=== PATIENT | male | born 1945 | race Caucasian/White ===

== ENCOUNTER → 2016-05-20 | Outpatient (CLI) | payer OTHER ==
[~2016-05-20] MED LIST: REGADENOSON 0.4 MG/5 ML DISP.SYRIN. IV ONE
== END | disposition home or self-care (01) ==
LOC: PCVCIMAG 07:42
PROVIDERS: ATTEND Internal Medicine Cardiovascular Disease
DX: I10 Essential (primary) hypertension (principal); E11.9 Type 2 diabetes mellitus without complications; E78.00 Pure hypercholesterolemia, unspecified; I25.10 Atherosclerotic heart disease of native coronary artery without angina pectoris; J44.9 Chronic obstructive pulmonary disease, unspecified
CPT/HCPCS: 78452; 93017; 93306; A9500; J2785

== ENCOUNTER → 2018-02-10 | Outpatient (CLI) | payer OTHER ==
--- NOTE | 2018-02-10 15:00 | PCVCIMAG ---
EXAM: BILATERAL RENAL ULTRASOUND AND BILATERAL RENAL DUPLEX INDICATION: Hypertension FINDINGS: Right kidney: Length measures 10.2 cm. No hydronephrosis or extensive renal scarring. 1.5 cm benign cyst lower pole. Right renal duplex: Adequate technical quality. No sonographic evidence of renal artery stenosis. The aortic to renal artery ratio is 1.2. The renal vein is patent. Left kidney: Length measures 10.9 cm. No hydronephrosis or extensive renal scarring. 1.8 cm benign cyst upper pole. Left renal duplex: Adequate technical quality. No sonographic evidence of renal artery stenosis. The aortic to renal artery ratio is 1.1. The renal vein is patent. Bladder: No obvious abnormalities. IMPRESSION: No significant renal artery stenosis. No hydronephrosis bilaterally. LOC:[id number]
== END | disposition home or self-care (01) ==
LOC: PCVCIMAG 13:00
PROVIDERS: ATTEND Internal Medicine Cardiovascular Disease
DX: I10 Essential (primary) hypertension (principal)
CPT/HCPCS: 76770; 93325; 93975

== ENCOUNTER → 2018-03-03 | Outpatient (CLI) | payer OTHER ==
--- NOTE | 2018-03-06 11:47 | PCVCIMAG ---
APPROVED REPORT Study performed: 03/03/2018 07:54:43 EXAM: Comprehensive 2D, Doppler, and color-flow Echocardiogram Patient Location: Echo lab Status: routine BSA: 2.05 HR: 65 bpmBP: 140/80 mmHg Rhythm: NSR Other Information Study Quality: Good Risk Factors: Cardiac Risk Factors: HTN, Hyperlipidemia, Hyperlipidemia, Smoking, FHX of CAD Indications Aortic Valve Disease CAD Hypertension/HDD COPD 2D Dimensions IVSd: 11.66 (7-11mm)LVOT Diam: 20.14 (18-24mm) LVDd: 42.04 mm PWd: 8.50 (7-11mm)Ascending Ao: 37.05 (22-36mm) LVDs: 32.98 (25-40mm) Left Atrium: 40.57 (27-40mm) Aortic Root: 30.89 mm LV Single Plane 4CH: 65.17 % LV Single Plane 2CH: 70.71 % Biplane EF: 67.7 % Volumes Left Atrial Volume (Systole) Single Plane 4CH: 38.93 mLSingle Plane 2CH: 60.74 mL LA ESV Index: 25.00 mL/m2 Aortic Valve AoV Peak Meng.: 2.02 m/s AO Peak Gr.: 16.27 mmHgLVOT Max P.57 mmHg LVOT Max V: 1.18 m/s TANMAY Vmax: 1.86 cm2 Mitral Valve E/A Ratio: 1.0 MV Decel. Time: 197.39 ms MV E Max Meng.: 0.90 m/s MV A Meng.: 0.91 m/s TDI E/Lateral E': 10.00E/Medial E': 12.86 Medial E' Meng.: 0.07 m/s Lateral E' Meng.: 0.09 m/s Pulmonary Valve PV Peak Gr.: 2.05 mmHg Pulmonary Vein P Vein S: 0.69 m/sP Vein A: 0.40 m/s P Vein D: 0.56 m/sP Vein A Dur.: 103.8 msec P Vein S/D Ratio: 1.23 Tricuspid Valve TR Peak Meng.: 2.98 m/s TR Peak Gr.: 35.42 mmHg Left Ventricle The left ventricle is normal size. There is normal LV segmental wall motion. There is normal left ventricular wall thickness. Left ventricular systolic function is normal. The left ventricular ejection fraction is within the normal range. LVEF is 60%. The left ventricular diastolic function is normal. Right Ventricle The right ventricle is normal size. The right ventricular systolic function is normal. Atria The left atrium size is normal. 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 The right atrium size is normal. Aortic Valve The aortic valve is normal in structure. No aortic regurgitation is present. There is no aortic valvular stenosis. Mitral Valve The mitral valve is normal in structure. There is no mitral valve regurgitation noted. No evidence of mitral valve stenosis. Tricuspid Valve The tricuspid valve is normal in structure. Trace tricuspid regurgitation. Pulmonary artery pressure is 33mmHg. Pulmonic Valve The pulmonary valve is normal in structure. There is no pulmonic valvular regurgitation. Great Vessels The aortic root is normal in size. IVC is normal in size and collapses >50% with inspiration. Pericardium There is no pericardial effusion. <Conclusion> The left ventricle is normal size. LVEF is 60%. The left ventricular diastolic function is normal. The right ventricle is normal size. The left atrium size is normal. The aortic valve is normal in structure. There is no aortic valvular stenosis. There is no mitral valve regurgitation noted. Trace tricuspid regurgitation. Pulmonary artery pressure is 33mmHg. The aortic root is normal in size. There is no pericardial effusion.
--- NOTE | 2018-03-06 11:48 | PCVCIMAG ---
APPROVED REPORT Imaging Protocol: Rest Tc-99m/Stress Tc-99m 1 day Study performed: 03/03/2018 08:36:46 Indication: CAD , Chest pain, High Ca Score, Exercise Intolerance Patient Location: Out-Patient Stress Nurse: Anuradha Lunsford RN, Margo Mcgraw RN ME Tech:IVAN BuchananMT Ht: 5 ft 9 in Wt: 198 lbs BSA: 2.06 m2 HR: 80 bpm BP: 146/71 mmHg BMI: 29.2 Rhythm: Sinus Rhythm, NS ST and T changes Medical History Medical History: Former Smoker, Diabetes, Age, CAD Medications: Norvasc, Atorvastatin, HCTZ, Bystolic, Omeprazole, ASA Allergies: Contrast Dye Cardiac Risk Factors: FHX of CAD Exercise History: Indeterminate Physical Disabilities: Gait and balance issues Meds Held (24 hrs): Bystolic Resting Data Rest SPECT myocardial perfusion imaging was performed in supine position 45 minutes following the intravenous injection of 11.1 mCi of Tc-99m Sestamibi. Time of rest injection: 839 Date: 03/03/2018 Administration Route: IV Administration Site: Left AC Pharmacologic Stress Pharmacologic stress test was performed by injecting Regadenoson 0.4 mg IV push over 10-15 seconds immediately followed by the intravenous injection of 33.7 mCi of Tc-99m Sestamibi. Time of stress injection: 939 Date: 03/03/2018 Administration Route: IV Administration Site: Left AC Gated Stress SPECT was performed 45 minutes after stress injection. The images were gated to evaluate regional wall motion and calculate left ventricular ejection fraction. Comments Prior Nuclear Stress Test 2017: Non-ischemic Stress Test Details Stress Test: Pharmacologic stress was paired with low level exercise. Reason for pharmacologic stress test: physical limitation. HRMax Heart Rate (APMHR): 149 bpm Resting HR: 80 bpmTarget HR (85% APMHR): 126 bpm Max HR Achieved: 101 bpm % of APMHR: 67 Recovery HR: 81 bpm BP Resting BP: 146/71 mmHg Max BP: 140/70 mmHg Recovery BP: 144/83 mmHg ECG Resting ECG: Sinus Rhythm, nonspecific ST-T abnormalities Stress ECG: Sinus Rhythm, nonspecific ST-T abnormalities ST Change: None Recovery ECG: Sinus Rhythm, nonspecific ST-T abnormalities Clinical Reason for Termination: Completed protocol Stress Symptoms: Dyspnea, Lightheaded Exercise duration: 4 min 00 sec Exercise capacity: 1.6 METs Symptoms resolved with caffeine. Stress ECG Conclusion ECG: Non-ischemic Study Quality Study: Good Artifact: Mild Diaphragmatic artifact Study Data Post stress, the left ventricular ejection was 69%.. SSS: 7 SRS: 4 SDS: 4 TID = 1.18. Perfusion No evidence of stress induced ischemia or prior myocardial infarction. Wall Motion Normal left ventricular size and function with no regional wall motion abnormalities. Nuclear Conclusion No evidence of stress induced ischemia or prior myocardial infarction. Normal left ventricular size and function with no regional wall motion abnormalities. Post stress, the left ventricular ejection was 69%. No change since prior study dated September 2016. Interpreted by: Rosalio Infante MD Electronically Approved: 03/03/2018 18:30:06 <Conclusion> ECG: Non-ischemic
== END | disposition home or self-care (01) ==
LOC: PCVCIMAG 07:39
PROVIDERS: ATTEND Internal Medicine Cardiovascular Disease
DX: I25.10 Atherosclerotic heart disease of native coronary artery without angina pectoris (principal); I35.8 Other nonrheumatic aortic valve disorders; R01.1 Cardiac murmur, unspecified; R93.1 Abnormal findings on diagnostic imaging of heart and coronary circulation; E11.9 Type 2 diabetes mellitus without complications; I10 Essential (primary) hypertension; E78.5 Hyperlipidemia, unspecified; J44.9 Chronic obstructive pulmonary disease, unspecified; R07.9 Chest pain, unspecified; R94.31 Abnormal electrocardiogram [ECG] [EKG]; R06.09 Other forms of dyspnea; R68.89 Other general symptoms and signs; Z87.891 Personal history of nicotine dependence
CPT/HCPCS: 78452; 93017; 93306; A9500; J2785

== ENCOUNTER → 2018-09-01 | Outpatient (CLI) | payer OTHER | END | disposition home or self-care (01) | LOC: PCVCCLINIC 11:00 | PROVIDERS: ATTEND Internal Medicine Cardiovascular Disease | DX: I25.10 Atherosclerotic heart disease of native coronary artery without angina pectoris (principal); E78.00 Pure hypercholesterolemia, unspecified; J44.9 Chronic obstructive pulmonary disease, unspecified; E11.9 Type 2 diabetes mellitus without complications; I10 Essential (primary) hypertension; R01.1 Cardiac murmur, unspecified; K21.9 Gastro-esophageal reflux disease without esophagitis; Z79.82 Long term (current) use of aspirin; Z87.891 Personal history of nicotine dependence | CPT/HCPCS: 36415; 80061; 93005; G0463 ==